=== PATIENT | male | born 1950 | race Caucasian/White ===

== ENCOUNTER 2018-03-23 11:51 | Emergency (ER) | payer MEDICARE, OTHER ==
[2018-03-23] MEDS ORDERED: SODIUM CHLORIDE 0.9% 1,000 ML IV STA (12:41)
--- NOTE | 2018-03-23 12:45 | ED ---
General Adult HPI - General Chief complaint: Neuro Symptoms/Deficit Stated complaint: Poss stroke Source: EMS Mode of arrival: EMS Limitations: no limitations - History of Present Illness Initial comments: Dictation was produced using [employer] dictation software. please excuse any grammatical, word or spelling errors. Chief Complaint: 67-year-old male presents with flaccid paralysis and aphasia 2 days. History of Present Illness: Vision male. Denies any history of CVA. Since his family member. Patient lives at home by himself. Apparently 48 hours ago patient fell. He states that he had expressed flaccid paralysis. Vital to the ground and was not discovered until earlier today where he was able to get the attention of his neighbors. EMS was called patient transferred to the emergency department. Patient denies any history of CVA. He does have remote history of seizures in the past. Patient admits get medical history. Patient slightly confused however able to provide some medical history. The ROS documented in this emergency department record has been reviewed and confirmed by me. Those systems with pertinent positive or negative responses have been documented in the HPI. All other systems are other negative and/or noncontributory. - Related Data Home Medications Medication Instructions Recorded Confirmed Finasteride [Proscar] 5 mg PO DAILY 03/23/18 03/23/18 Tamsulosin [Flomax] 0.4 mg PO BID 03/23/18 03/23/18 Terbinafine [LamISIL] 250 mg PO DAILY 03/23/18 03/23/18 Allergies Allergy/AdvReac Type Severity Reaction Status Date / Time No Known Allergies Allergy Verified 03/23/18 12:51 Review of Systems ROS Statement: Those systems with pertinent positive or pertinent negative responses have been documented in the HPI. ROS Other: All systems not noted in ROS Statement are negative. Past Medical History Past Medical History: Hypertension History of Any Multi-Drug Resistant Organisms: None Reported Past Surgical History: Unable to Obtain Past Psychological History: Depression Smoking Status: Never smoker Past Alcohol Use History: None Reported Past Drug Use History: None Reported General Exam - General Exam Comments Initial Comments: PHYSICAL EXAM: General Impression: Alert and oriented x3, not in acute distress HEENT: Normocephalic atraumatic, extra-ocular movements intact, 2 mm pupils Cardiovascular: Heart regular rate and rhythm, S1&S2 audible, no murmurs, rubs or gallops Chest: Lungs clear to auscultation bilaterally, no rhonchi, no wheeze, no rales Abdomen: Bowel sounds present, abdomen soft, non-tender, non-distended, no organomegaly Musculoskeletal: Pulses present and equal in all extremities, no peripheral edema Motor: Power 5/5 bilaterally, no focal deficits noted Neurological: CN II-XII grossly intact, less than paralysis of the right upper and right lower extremity, intact pain sensation to all extremities. Slightly aphasic Skin: Intact with no visualized rashes Limitations: no limitations Course Vital Signs 03/23/18 03/23/18 12:22 13:46 Temperature 98.8 F Pulse Rate 105 H 106 H Respiratory 20 18 Rate Blood Pressure 161/106 162/103 O2 Sat by Pulse 98 97 Oximetry Medical Decision Making - Medical Decision Making ED course: 67-year-old male presents with altered mental status and neuro deficits. As upon arrival are within acceptable limits. NIH scale is 13. Patient symptoms started 48 hours ago. Patient outside TPA window. Pending laboratory evaluation obtained. Chest x-ray shows right upper lobe pulmonary nodule concerning for malignancy. Computed tomography scan of the head was obtained showing suspicion of hemorrhagic mass in the left frontal lobe with vasogenic edema area. There is mild midline shift. Medications were reviewed. Patient is not on any anticoagulation medications. Patient's blood pressure is slightly high. Patient started on low-dose labetalol drip. Patient be transferred to [facility]. She also given 10 mg of IV Decadron. EKG interpretation: Ventricular rate 103, sinus tachycardia, TN interval 160, QRS 92, QTC 471. No TN prolongation, no QTC prolongation, no ST or T-wave changes noted. Overall, this EKG is unremarkable - Lab Data Result diagrams: 03/23/18 12:45 Lab Results 03/23/18 Range/Units 12:45 WBC 13.5 H (3.8-10.6) k/uL RBC 5.28 (4.30-5.90) m/uL Hgb 14.6 (13.0-17.5) gm/dL Hct 45.8 (39.0-53.0) % MCV 86.6 (80.0-100.0) fL MCH 27.6 (25.0-35.0) pg MCHC 31.9 (31.0-37.0) g/dL RDW 13.1 (11.5-15.5) % Plt Count 333 (150-450) k/uL Neutrophils % 87 % Lymphocytes % 6 % Monocytes % 5 % Eosinophils % 1 % Basophils % 0 % Neutrophils # 11.8 H (1.3-7.7) k/uL Lymphocytes # 0.8 L (1.0-4.8) k/uL Monocytes # 0.7 (0-1.0) k/uL Eosinophils # 0.1 (0-0.7) k/uL Basophils # 0.0 (0-0.2) k/uL Disposition Clinical Impression: Intracranial mass Disposition: OTHER INSTITUTION NOT DEFINED Condition: Critical Referrals: Kj Murdock MD [Primary Care Provider] - 1-2 days Time of Disposition: 13:55 - Out of Hospital Transfer - Req. Specs Out of Hospital Transfer - Requested Specifics: Other Emergency Center ([facility])
--- NOTE | 2018-03-23 13:03 | XR ---
EXAMINATION TYPE: XR chest 1V portable DATE OF EXAM: 03/23/2018 COMPARISON: NONE HISTORY: Altered mental status TECHNIQUE: Single frontal view of the chest is obtained. FINDINGS: Subsegmental changes at both lung bases. There is a nodule in the right upper lobe suspici ous for malignancy measuring 1 cm. No pneumothorax. No interstitial edema. IMPRESSION: 1. There is a 1 cm right upper lobe pulmonary nodule suspicious for malignancy. CT chest recommended. 2. There is bibasilar atelectasis favored over infiltrate correlate clinically.
[2018-03-23] MEDS ORDERED: DEXAMETHASONE SOD PHOSPHATE 10 MG/ML 1 ML VIAL IV STA (13:28)
[2018-03-23] MEDS ORDERED: LABETALOL 100 MG in SODIUM CHLORIDE 0.9% 80 ML IV ONE (13:46)
[2018-03-23 13:47] LABS: Basophils % (A) 0 %; Eosinophils # (A) 0.1 k/uL (0-0.7); Eosinophils % (A) 1 %; HCT 45.8 % (39.0-53.0); HGB 14.6 gm/dL (13.0-17.5); Lymphocytes # (A) 0.8 k/uL (1.0-4.8); Lymphocytes % (A) 6 %; MCH 27.6 pg (25.0-35.0); MCHC 31.9 g/dL (31.0-37.0); MCV 86.6 fL (80.0-100.0); Monocytes # (A) 0.7 k/uL (0-1.0); Monocytes % (A) 5 %; Neutrophils # (A) 11.8 k/uL (1.3-7.7); Neutrophils % (A) 87 %; Platelet Count 333 k/uL (150-450); RBC 5.28 m/uL (4.30-5.90); RDW 13.1 % (11.5-15.5); WBC 13.5 k/uL (3.8-10.6)
--- NOTE | 2018-03-23 13:47 | CT ---
EXAMINATION TYPE: CT brain wo con DATE OF EXAM: 03/23/2018 COMPARISON: HISTORY: Possible stroke CT DLP: 1119.[address] of the brain was performed. The ventricles, basal cisterns and sulci overlying the cerebral convexities demonstrate mild enlargem ent. Mixed attenuation mass left frontal lobe with hyperdensity which may reflect hemorrhagic mass measuri ng 3.0 x 2.7 x4.2 cm with surrounding vasogenic edema. Additional possibility is that of hemorrhage w ithout underlying mass. There is mass effect upon the left frontal horn and mild left to right shift measuring 3.3 mm. No evidence for herniation at this time. Remote left frontal insult noted. No addit ional lesions identified. There is decreased attenuation about the periventricular white matter and deep white matter of both c erebral hemispheres, compatible with chronic small vessel ischemia. Differential diagnosis does inclu de demyelination. Osseous calvarium is intact. If symptoms persist consider MRI. IMPRESSION: 1. Suspect hemorrhagic mass left frontal lobe with surrounding vasogenic edema. Malignancy is suspect ed. Hemorrhage without underlying mass is an additional possibility. Mild shift from left to right of 3 mm without herniation at this time. ER physician was notified at the time of exam completion via telephone.
[2018-03-23 13:57] LABS: Prothrombin Time 10.5 sec (9.0-12.0)
[2018-03-23 13:59] LABS: ALT 62 U/L (21-72); AST 142 U/L (17-59); Alkaline Phosphatase 276 U/L (38-126); Anion Gap 13 mmol/L; Blood Urea Nitrogen 19 mg/dL (9-20); Carbon Dioxide 22 mmol/L (22-30); Chloride 105 mmol/L (98-107); Glucose 98 mg/dL (74-99); Potassium 4.5 mmol/L (3.5-5.1); Sodium 140 mmol/L (137-145); Total Bilirubin 1.1 mg/dL (0.2-1.3); Total Protein 7.5 g/dL (6.3-8.2)
[2018-03-23 14:02] VITALS: RESP 20
[2018-03-23 14:18] VITALS: BP 170/104; PULSE 103; TEMP 98.5
[2018-03-23 14:28] LABS: Creatine Kinase MB 18.6 ng/mL (0.0-2.4); Troponin I <0.012 ng/mL (0.000-0.034)
[2018-03-23 14:37] LABS: Creatine Kinase 5053 U/L (55-170)
[2018-03-23 14:41] LABS: Creatine Kinase 5053 U/L (55-170)
== END 2018-03-23 14:26 | disposition other institution (70) ==
LOC: EC 11:51
DX: G93.89 Other specified disorders of brain (principal); R47.01 Aphasia; R41.0 Disorientation, unspecified; R29.713 NIHSS score 13; R00.0 Tachycardia, unspecified; R91.1 Solitary pulmonary nodule; I10 Essential (primary) hypertension; Z79.899 Other long term (current) drug therapy
CPT/HCPCS: 36415; 93005; 80053; 82550; 82553; 84484; 85025; 85610; 85730; 71045; 70450; 99285; 96374; 96361; J1100